=== PATIENT | male | born 1995 | race Caucasian/White ===

== ENCOUNTER 2017-09-14 12:11 | Outpatient (CLI) ==
[2016-08-21 10:14] VITALS: BMI 26.9
== END 2017-09-14 12:12 | disposition home or self-care (01) ==
LOC: RHC-LAB 12:11
PROVIDERS: ATTEND Nurse Practitioner Family
DX: L03.114 Cellulitis of left upper limb (principal); T63.301A Toxic effect of unspecified spider venom, accidental (unintentional), initial encounter
CPT/HCPCS: 87070